=== PATIENT | female | born 1990 ===

== ENCOUNTER 2016-10-28 19:22 | Emergency (ER) | payer BC ==
[2016-10-28 19:22] VITALS: BMI 31.7
[2016-10-28 19:33] VITALS: BP 134/86; PULSE 123; TEMP 99.6; O2SAT 96
[2016-10-28] MEDS ORDERED: Albuterol-Ipratrop 3 mg / 0.5 (3 ml) UD INH STA (20:28)
[2016-10-28] MEDS ORDERED: Albuterol-Ipratrop 3 mg / 0.5 (3 ml) UD ONE (20:32)
[2016-10-28 21:02] VITALS: RESP 19
--- NOTE | 2016-10-28 21:03 | ED PDOC ---
HPI: SOB/CHF/COPD Time Seen by Provider: 10/28/16 20:01 Chief Complaint (Nursing): Shortness Of Breath Chief Complaint (Provider): Cough/Shortness of Breath History Per: Patient History/Exam Limitations: no limitations Onset/Duration Of Symptoms: Days (x4) Current Symptoms Are (Timing): Still Present Associated Symptoms: Productive Cough Additional Complaint(s): 20:01 Candy Valadez is a 26 year old female with a history of asthma and depression that presents to the ED with a chief complaint of a productive cough with associated rhinorrhea and nasal congestion that she has been experiencing for the past four days. Patient denies any fever, and reports that she has been taking Delsym and Albuterol with very minimal relief. She states that earlier today she was experiencing a lot of chest tightness, and used her Albuterol frequently, which is what prompted her visit to the ED. PMD: Manoj WADE Past Medical History Reviewed: Historical Data, Nursing Documentation, Vital Signs Vital Signs: Last Vital Signs Temp 99.6 F 10/28/16 19:32 Pulse 123 H 10/28/16 19:32 Resp 19 10/28/16 21:01 BP 134/86 10/28/16 19:32 Pulse Ox 96 10/28/16 21:09 - Medical History PMH: Anxiety, Asthma, Bronchitis, Depression Denies: Diabetes, Hepatitis, HIV, HTN, Chronic Kidney Disease, Seizures, Sexually Transmitted Disease - Surgical History Surgical History: (x 1) - Family History Family History: States: Unknown Family Hx - Social History Current smoker - smoking cessation education provided: No - Immunization History Hx Tetanus Toxoid Vaccination: No Hx Influenza Vaccination: No Hx Pneumococcal Vaccination: No - Home Medications Home Medications: Ambulatory Orders Medication Instructions Recorded Escitalopram [Lexapro] 5 mg PO DAILY 05/22/16 Lorazepam [Ativan] 0.5 mg PO BID 05/22/16 Albuterol 0.083% [Albuterol 3 ml IH Q4 PRN #50 neb 10/28/16 Sulfate 3 Ml] Azithromycin [Zithromax] 250 mg PO DAILY #6 dose 10/28/16 Prednisone 50 mg PO DAILY #4 tablet 10/28/16 - Allergies Allergies/Adverse Reactions: Allergies Allergy/AdvReac Type Severity Reaction Status Date / Time dog dander Allergy SHORTNESS Verified 10/28/16 19:31 OF BREATH mold Allergy SHORTNESS Verified 10/28/16 19:31 OF BREATH Review of Systems Constitutional: Negative for: Fever ENT: Positive for: Nose Discharge (rhinorrhea), Nose Congestion Cardiovascular: Positive for: Other (patient experienced chest tightness earlier today) Respiratory: Positive for: Cough (productive cough, green-yellow sputum) Physical Exam - Reviewed Nursing Documentation Reviewed: Yes Vital Signs Reviewed: Yes - Physical Exam Appears: Positive for: Non-toxic, No Acute Distress Head Exam: Positive for: ATRAUMATIC, NORMOCEPHALIC Skin: Positive for: Normal Color, Warm ENT: Positive for: Normal ENT Inspection Cardiovascular/Chest: Positive for: Regular Rate, Rhythm, Chest Non Tender. Negative for: Murmur Respiratory: Positive for: Rhonchi (faint), Other (good air movement). Negative for: Normal Breath Sounds (diffuse expiratory wheezing), Accessory Muscle Use, Rales - ECG O2 Sat by Pulse Oximetry: 96 (RA) Pulse Ox Interpretation: Normal Medical Decision Making Medical Decision Makin:25 Initial Impression: Asthma Exacerbation vs. Respiratory Infection vs. PNA vs. Influenza Virus vs. Bronchitis Initial Plan: * Urine dip * Chest X-Ray * Albuterol 9 ml INH * Methylprednisolone 125 mg IM * Peak Flow Pre/Post TX * Flu Swab * Reevaluation Scribe Attestation: Documented by Mary Zhao, acting as a scribe for Samira Arcos MD Provider Scribe Attestation: All medical record entries made by the Scribe were at my direction and personally dictated by me. I have reviewed the chart and agree that the record accurately reflects my personal performance of the history, physical exam, medical decision making, and the department course for this patient. I have also personally directed, reviewed, and agree with the discharge instructions and disposition. Disposition - Clinical Impression Clinical Impression: Bronchitis, Asthma exacerbation Counseled Patient/Family Regarding: Studies Performed, Need For Followup, Rx Given - Disposition Disposition: Routine/Home Disposition Time: 22:04 Condition: STABLE Additional Instructions: SEE YOUR DOCTOR IN 48 HOURS FOR REEVALUATION Prescriptions: Albuterol 0.083% [Albuterol Sulfate 3 Ml] 3 ml IH Q4 PRN #50 neb PRN Reason: asthma Prednisone 50 mg PO DAILY #4 tablet Azithromycin [Zithromax] 250 mg PO DAILY #6 dose Instructions: Acute Bronchitis (ED), Asthma (ED) Forms: [facility] ED School/Work Excuse
== END 2016-10-28 22:10 | disposition home or self-care (01) ==
LOC: H.ER 19:22
DX: J45.909 Unspecified asthma, uncomplicated (principal); J40 Bronchitis, not specified as acute or chronic
CPT/HCPCS: 81025; 87804; 94640; 96372; 99283; J2930

== ENCOUNTER 2016-11-21 00:03 | Emergency (ER) | payer BC ==
[2016-11-21 00:04] VITALS: BMI 33.6
[2016-11-21 00:05] VITALS: BP 128/82; PULSE 97; RESP 18; TEMP 98.2; O2SAT 99
--- NOTE | 2016-11-21 01:22 | ED PDOC ---
HPI: General Adult Time Seen by Provider: 11/21/16 00:09 Chief Complaint (Nursing): Anxiety Chief Complaint (Provider): Panic attack History Per: Patient History/Exam Limitations: no limitations Onset/Duration Of Symptoms: Days Have you had recent travel within the past 21 days to any of the following countries: [place], [place], [place] or [place]?: No Current Symptoms Are (Timing): Still Present Additional Complaint(s): Pt states she was diagnosed with anxiety and depression after giving to her second child who is 19 months old. Pt states she was taking zoloft 50mg and klonopin. Pt states she has gone down on her klonopin and she has been taking zoloft 12.5mg. Pt states she woke up with her normal symptoms of anxiety. Pt states she was anxious with palpitations. PT states she took a klonopin which helped all her symptoms. PT states her last klonopin was 2 days ago. PT denies any current symptoms. Past Medical History Reviewed: Historical Data, Nursing Documentation, Vital Signs Vital Signs: Last Vital Signs Temp 98.2 F 11/21/16 00:05 Pulse 97 H 11/21/16 00:05 Resp 18 11/21/16 00:05 BP 128/82 11/21/16 00:05 Pulse Ox 99 11/21/16 00:05 - Medical History PMH: Anxiety, Asthma, Bronchitis, Depression Denies: Diabetes, Hepatitis, HIV, HTN, Chronic Kidney Disease, Seizures, Sexually Transmitted Disease - Surgical History Surgical History: (x 1) - Family History Family History: States: Unknown Family Hx - Immunization History Hx Tetanus Toxoid Vaccination: No Hx Influenza Vaccination: No Hx Pneumococcal Vaccination: No - Home Medications Home Medications: Ambulatory Orders Medication Instructions Recorded Escitalopram [Lexapro] 5 mg PO DAILY 05/22/16 Lorazepam [Ativan] 0.5 mg PO BID 05/22/16 Albuterol 0.083% [Albuterol 3 ml IH Q4 PRN #50 neb 10/28/16 Sulfate 3 Ml] Azithromycin [Zithromax] 250 mg PO DAILY #6 dose 10/28/16 Prednisone 50 mg PO DAILY #4 tablet 10/28/16 - Allergies Allergies/Adverse Reactions: Allergies Allergy/AdvReac Type Severity Reaction Status Date / Time dog dander Allergy SHORTNESS Verified 10/28/16 19:31 OF BREATH mold Allergy SHORTNESS Verified 10/28/16 19:31 OF BREATH Review of Systems ROS Statement: Except As Marked, All Systems Reviewed And Found Negative Cardiovascular: Positive for: Palpitations Neurological: Negative for: Altered Mental Status, Headache, Dizziness Psych: Positive for: Anxiety Physical Exam - Reviewed Nursing Documentation Reviewed: Yes Vital Signs Reviewed: Yes - Physical Exam Appears: Positive for: Well, Non-toxic, No Acute Distress Head Exam: Positive for: ATRAUMATIC, NORMAL INSPECTION, NORMOCEPHALIC Skin: Positive for: Normal Color, Warm, DRY Eye Exam: Positive for: Normal appearance ENT: Positive for: Normal ENT Inspection Neck: Positive for: Normal, Painless ROM Cardiovascular/Chest: Positive for: Regular Rate, Rhythm Respiratory: Positive for: CNT, Normal Breath Sounds Gastrointestinal/Abdominal: Positive for: Normal Exam, Bowel Sounds, Soft Back: Positive for: Normal Inspection Extremity: Positive for: Normal ROM Neurologic/Psych: Positive for: Alert, Oriented - ECG O2 Sat by Pulse Oximetry: 99 Medical Decision Making Medical Decision Making: Normal EKG Discussed f/u with her psychiatrist. Pt states her psychiatrist told her to take 25 mg zoloft but she is taking half on her own. Discussed returning to dose prescribed. Disposition - Clinical Impression Clinical Impression: Anxiety attack - Patient ED Disposition Is Patient to be Admitted: No Counseled Patient/Family Regarding: Diagnosis, Need For Followup - Disposition [facility] Disposition: Routine/Home Disposition Time: 01:06 Condition: GOOD Instructions: Anxiety (ED)
--- NOTE | 2016-11-21 16:13 | CARD ---
APPROVED REPORT EKG Measurement Heart [id number] <Conclusion> Normal sinus rhythm Normal ECG
== END 2016-11-21 01:30 | disposition home or self-care (01) ==
LOC: H.ER 00:03
DX: F41.0 Panic disorder [episodic paroxysmal anxiety] (principal); F32.9 Major depressive disorder, single episode, unspecified; R00.2 Palpitations; J45.909 Unspecified asthma, uncomplicated

== ENCOUNTER 2017-02-02 01:27 | Emergency (ER) | payer BC, MEDICAID, OTHER ==
[2017-02-02 01:28] VITALS: BMI 33.0
[2017-02-02 01:49] VITALS: BP 131/91; PULSE 100; RESP 17; TEMP 98.4; O2SAT 97
--- NOTE | 2017-02-02 02:48 | ED PDOC ---
- ECG O2 Sat by Pulse Oximetry: 97
[2017-02-02 02:54] LABS: BASO # 0.1 K/uL (0.0-0.2); BASO % 1.3 % (0.0-2.0); EOS # 0.9 K/uL (0.0-0.7); EOS % 8.6 % (0.0-4.0); LYMPH % 30.1 % (20.0-40.0); MEAN CELL VOLUME 88.2 fl (81.0-99.0); MEAN CORPUSCULAR HEMOGLOBIN 29.9 pg (27.0-31.0); MEAN PLATELET VOLUME 10.6 fl (7.2-11.7); MONO # 0.7 K/uL (0.0-0.8); MONO % 7.5 % (0.0-10.0); NEUT # 5.3 K/uL (1.8-7.0); NEUT % 52.5 % (50.0-75.0); NRBC % 0.3 % (0.0-0.0); RBC 4.36 Mil/uL (3.80-5.20); RED CELL DISTRIBUTION WIDTH 13.9 % (11.5-14.5)
--- NOTE | 2017-02-02 02:54 | ED PDOC ---
HPI: General Adult Time Seen by Provider: 02/02/17 01:55 Chief Complaint (Nursing): Anxiety Chief Complaint (Provider): chest discomfort History Per: Patient History/Exam Limitations: no limitations Onset/Duration Of Symptoms: Hrs (1) Have you had recent travel within the past 21 days to any of the following countries: [place], [place], [place] or [place]?: No Current Symptoms Are (Timing): Still Present Additional Complaint(s): 26yo female with PMHx including anxiety, depression, gastritis presents to the ED with c/o burning sensation to chest for the past hour that awoke her from sleep with numbness to face for 3 weeks. Patient recently started taking dexilant for gastritis and also note having palpations when she awoke from sleep which cause her to become anxious. Patient states numbness to face is intermittent. Denies trouble walking, talking, or eating. Took klonopin just [employer] which significantly improved symptoms. Patient's psychiatrist recently changed her from zoloft to prozac which she thinks may have precipitated anxiety. Past Medical History Reviewed: Historical Data, Nursing Documentation, Vital Signs Vital Signs: Last Vital Signs Temp 98.4 F 02/02/17 01:32 Pulse 100 H 02/02/17 01:32 Resp 17 02/02/17 01:32 BP 131/91 H 02/02/17 01:32 Pulse Ox 97 02/02/17 02:59 - Medical History PMH: Anxiety, Asthma, Bronchitis, Depression, Gastritis Denies: Diabetes, Hepatitis, HIV, HTN, Chronic Kidney Disease, Seizures, Sexually Transmitted Disease - Surgical History Surgical History: (x 1) - Family History Family History: States: No Known Family Hx - Social History Current smoker - smoking cessation education provided: No Alcohol: None Drugs: Denies - Immunization History Hx Tetanus Toxoid Vaccination: No Hx Influenza Vaccination: No Hx Pneumococcal Vaccination: No - Home Medications Home Medications: Ambulatory Orders Medication Instructions Recorded Albuterol 0.083% [Albuterol 3 ml IH Q4 PRN #50 neb 10/28/16 Sulfate 3 Ml] FLUoxetine [Prozac] 10 mg PO DAILY 12/31/16 Omeprazole Magnesium [Prilosec Otc] 20 mg PO DAILY #30 tcp 12/31/16 Ranitidine HCl [Zantac] 150 mg PO DAILY PRN 12/31/16 clonazePAM [clonAZEPAM] 0.25 mg PO BID PRN 12/31/16 - Allergies Allergies/Adverse Reactions: Allergies Allergy/AdvReac Type Severity Reaction Status Date / Time dog dander Allergy SHORTNESS Verified 12/31/16 12:45 OF BREATH mold Allergy SHORTNESS Verified 12/31/16 12:45 OF BREATH Review of Systems ROS Statement: Except As Marked, All Systems Reviewed And Found Negative Cardiovascular: Positive for: Palpitations, Other (burning sensation to chest ) Neurological: Positive for: Numbness (to face ) Psych: Positive for: Anxiety Physical Exam - Reviewed Nursing Documentation Reviewed: Yes Vital Signs Reviewed: Yes - Physical Exam Appears: Positive for: Well, No Acute Distress Head Exam: Positive for: ATRAUMATIC, NORMAL INSPECTION, NORMOCEPHALIC Skin: Positive for: Normal Color, Warm, Dry Eye Exam: Positive for: Normal appearance, EOMI, PERRL ENT: Positive for: Normal ENT Inspection Neck: Positive for: Normal, Painless ROM, Supple Cardiovascular/Chest: Positive for: Regular Rate, Rhythm. Negative for: Murmur , Tachycardia Respiratory: Positive for: Normal Breath Sounds. Negative for: Wheezing, Respiratory Distress Gastrointestinal/Abdominal: Positive for: Normal Exam, Soft. Negative for: Tenderness Back: Positive for: Normal Inspection Extremity: Positive for: Normal ROM. Negative for: Deformity, Swelling Neurologic/Psych: Positive for: Alert, Oriented - Laboratory Results Result Diagrams: 02/02/17 02:50 02/02/17 02:50 - ECG O2 Sat by Pulse Oximetry: 97 Pulse Ox Interpretation: Normal (RA) Medical Decision Making Medical Decision Makin: Impression: 26yo female w/ multiple somatic complaints in setting of known anxiety and depression Plan: EKG Labs crisis eval IVF reassess 0330: Labs reviewed, no clinically significant findings. Patient was cleared by crisis and is stable for discharge. Dx: anxiety stable Scribe Attestation: Documented by Cem Hung acting as a scribe for Kareem Singleton MD. Provider Scribe Attestation: All medical record entries made by the Scribe were at my direction and personally dictated by me. I have reviewed the chart and agree that the record accurately reflects my personal performance of the history, physical exam, medical decision making, and the department course for this patient. I have also personally directed, reviewed, and agree with the discharge instructions and disposition. Disposition - Clinical Impression Clinical Impression: Anxiety, Paresthesia - Patient ED Disposition Is Patient to be Admitted: No - Disposition Referrals: [facility] [Outside] Disposition: Routine/Home Disposition Time: 03:30 Condition: STABLE Instructions: Paresthesia (ED), Anxiety (ED)
[2017-02-02 03:13] LABS: ALB/GLOB RATIO 1.4 (1.0-2.1); ALT/SGPT 15 U/L (9-52); AST/SGOT 46 U/L (14-36); BLOOD UREA NITROGEN 11 mg/dl (7-17); CALCIUM 9.7 mg/dL (8.4-10.2); GFR AFRICAN-AMERICAN > 60; GFR NON-AFRICAN AMERICAN > 60; LIPASE 99 U/L (23-300)
--- NOTE | 2017-02-02 11:28 | CARD ---
APPROVED REPORT EKG Measurement Heart [id number] <Conclusion> Normal sinus rhythm Normal ECG
== END 2017-02-02 05:00 | disposition home or self-care (01) ==
LOC: H.ER 01:27
DX: R20.2 Paresthesia of skin (principal); F41.9 Anxiety disorder, unspecified